=== PATIENT | male | born 1995 | race African-American/Black ===

== ENCOUNTER 2024-12-08 05:43 | Emergency (ER) | payer OTHER ==
[~2024-12-08] VITALS: Ht 177.8 cm; Wt 97.0 kg
[2024-12-08 06:03] VITALS: TEMP 36.6; O2SAT 99
[2024-12-08 06:54] LABS: BASOPHILS % 0.6 % (0.0-2.0); EOSINOPHILS % 1.2 % (0.0-5.0); HEMATOCRIT. 39.2 % (42.0-52.0); HEMOGLOBIN. 12.3 g/dL (14.0-18.0); LYMPHOCYTES % 42.5 % (20.0-50.0); MEAN PLATELET VOLUME 8.1 fl (7.4-10.4); MONOCYTES % 8.9 % (2.0-8.0); NEUTROPHILS % 46.8 % (40.0-76.0); PLATELET 298 x1000/uL (130-400); RED BLOOD CELL COUNT 5.56 mill/uL (4.7-6.1); RED CELL DISTRIBUTION WIDTH 13.8 % (11.6-14.6)
[2024-12-08 07:13] LABS: CREATININE 0.9 mg/dL (0.6-1.3); UREA NITROGEN BLOOD 8 mg/dL (9-23)
[2024-12-08 07:15] LABS: ASPARTATE AMINOTRANSFERASE 16 IU/L (<34); BILIRUBIN DIRECT 0.2 mg/dL (<=3.0); BILIRUBIN TOTAL 0.6 mg/dL (0.1-1.0); PROTEIN TOTAL 8.1 g/dL (6.0-8.3)
[2024-12-08] MEDS: KETOROLAC 15MG/ML VIAL IV ONE (07:44)
[2024-12-08] MEDS ORDERED: TOPUD PO (08:17)
[2024-12-08 08:38] VITALS: BP 129/81; PULSE 73; RESP 17; O2SAT 99
== END 2024-12-08 08:47 | disposition home or self-care (01) ==
LOC: ER 05:43
DX: R10.32 Left lower quadrant pain (principal); N48.89 Other specified disorders of penis; Z90.49 Acquired absence of other specified parts of digestive tract; Z88.8 Allergy status to other drugs, medicaments and biological substances
CPT/HCPCS: 99285; 96374; 93976; 80076; 80048; 83690; 85025; 36415; 76870; J1885